=== PATIENT | male | born 2000 | race African-American/Black ===

== ENCOUNTER 2024-08-14 08:16 | Emergency (ER) | payer SELFPAY ==
[2024-08-14] MEDS: Ondansetron 4 MG Tab.DIS PO ONE (08:54)
[2024-08-14] MEDS: Ondansetron 4 MG/2 ML SDV IVPUSH ONE (08:54)
[2024-08-14 09:03] LABS: HEMATOCRIT 41.5 % (42.0-52.0); HEMOGLOBIN 13.3 g/dL (14.0-18.0); MEAN CORPUSCULAR HEMOGLOBIN 22.6 pg (28.0-32.0); MEAN CORPUSCULAR VOLUME 70.5 fL (83.0-99.0); MEAN PLATELET VOLUME 10.4 fL (9.4-12.4); PLATELET COUNT,PLT 275 K/uL (150-400); RED BLOOD CELL COUNT 5.89 M/uL (4.52-5.90); WHITE BLOOD CELL COUNT,WBC 6.97 K/uL (3.9-11.3)
[2024-08-14 09:25] LABS: A/G RATIO 1.3 (0.9-1.6); ALBUMIN 3.9 g/dL (3.4-5.0); BILIRUBIN TOTAL 0.4 mg/dL (0.2-1.0); CALCIUM 9.2 mg/dL (8.5-10.1); CARBON DIOXIDE,CO2 27.2 mmol/L (21.0-32.0); CREATININE 1.4 mg/dL (0.8-1.3); EST CRCL DRUG DOSING (CG) 83.28 mL/min
[2024-08-14 10:35] LABS: EOSINOPHILS ABSOLUTE MAN 0.07 K/uL (0.00-0.45); EOSINOPHILS PERCENT MAN 1 % (0-6); LYMPHOCYTES ABSOLUTE MAN 1.12 K/uL (1.00-4.80); LYMPHOCYTES PERCENT MAN 16 % (24-44); MONOCYTES ABSOLUTE MAN 0.42 K/uL (0.00-0.80); MONOCYTES PERCENT MAN 6 % (0-8); SEG NEUTROPHILS ABSOLUTE MAN 5.37 K/uL (1.80-7.70); SEG NEUTROPHILS PERCENT MAN 77 % (41-71)
== END 2024-08-14 10:44 | disposition home or self-care (01) ==
LOC: MW.ED 08:16
DX: R11.2 Nausea with vomiting, unspecified (principal)
CPT/HCPCS: 36415; 80053; 83690; 85025; 99284; A9270